=== PATIENT | female | born 1975 | race Caucasian/White ===

== ENCOUNTER 2018-09-05 14:08 | Emergency (ER) | payer OTHER ==
--- NOTE | 2018-09-05 14:43 | EDPHY ---
H & P Stated Complaint: Infected stye Time Seen by Provider: 09/05/18 14:43 HPI/ROS: Chart made in Error. Source: Patient - Personal History LMP (Females 10-55): IUD In Place Current Tetanus/Diphtheria Vaccine: Yes - Medical/Surgical History Hx Asthma: No Hx Chronic Respiratory Disease: No Hx Diabetes: No Hx Cardiac Disease: No Hx Renal Disease: No Hx Cirrhosis: No Hx Alcoholism: No Other PMH: Denies - Social History Smoking Status: Never smoked Constitutional: Initial Vital Signs Temperature (C) 36.4 C 09/05/18 14:16 Heart Rate 73 09/05/18 14:16 Respiratory Rate 18 09/05/18 14:16 Blood Pressure 113/86 H 09/05/18 14:16 O2 Sat (%) 94 09/05/18 14:16 O2 Delivery Mode Room Air Allergies/Adverse Reactions: No Known Allergies Allergy (Verified 09/05/18 16:16) Home Medications: Medication Instructions Recorded Acetaminophen [Tylenol 325mg (*)] 325 - 650 mg PO Q6 PRN 09/05/18 Cephalexin [Keflex (*)] 500 mg PO TID 09/05/18 Doxycycline Hyclate [Vibramycin 100 mg PO BID #14 cap 09/05/18 100 MG (*)] Ibuprofen [Motrin (*)] 400 mg PO Q6HRS PRN 09/05/18 Tobramycin 0.3% [Tobrex] 1 mary EACHEYE TID 09/05/18 Medical Decision Making - Data Points Laboratory Results: Laboratory Results 09/05/18 14:56 09/05/18 14:56 Medications Given: Discontinued Medications Sodium Chloride (Ns) 1,000 mls @ 0 mls/hr IV ONCE ONE; Wide Open PRN Reason: Protocol Stop: 09/05/18 14:52 Last Admin: 09/05/18 15:09 Dose: 1,000 mls Clindamycin Phosphate/Dextrose (Cleocin 600 Mg (Premix)) 50 mls @ 100 mls/hr IV ONCE ONE PRN Reason: Protocol Stop: 09/05/18 16:20 Last Admin: 09/05/18 15:57 Dose: 50 mls Departure - Departure Disposition: [facility] Acute Clinical Impression: Periorbital cellulitis of left eye, Failure of outpatient treatment Condition: Fair Additional Instructions: Dr. Dodge (ophthalmology) will call you for appointment in their [place] office tomorrow ([facility]) [phone] Take Keflex plus Doxycycline until complete Referrals: Nitin Dodge MD [Medical Doctor] - Nelly Carr NP [Primary Care Provider] - Prescriptions: Doxycycline Hyclate [Vibramycin 100 MG (*)] 100 mg PO BID #14 cap
[2018-09-05] MEDS ORDERED: NS 1,000 ML IV ONE (14:51)
--- NOTE | 2018-09-05 14:56 | EDPHY ---
H & P Stated Complaint: Infected stye Time Seen by Provider: 09/05/18 14:43 HPI/ROS: HPI: This is a 43-year-old female who presents with Chief Complaint: Left eye redness and swelling Location: Left eye Quality: Redness and swelling Duration: 4 days Signs and Symptoms: no fever, no nausea, no vomiting, no photophobia, no noise sensitivity, no neck stiffness, no ear pain, no tinnitus, no nasal congestion, no sinus pressure, no weakness, no radiation, no aura, no vision changes, no headache Timing: Worsening Severity: Moderate Context: Patient presents complaints of left eye periorbital redness and swelling that is now extending into her left cheek area. She reports that approximately 5 days ago she developed a stye on her left upper eyelid. She applied warm compresses several times per day for 2 days with no improvement in symptoms. She was seen at an urgent care approximately 3 days ago and started on Keflex twice daily. The redness and swelling actually worsened so she went to [facility] emergency room yesterday evening and had the stye "drained and Keflex increased to 3 times per day and started on tobramycin eyedrops." She reports that over the course of the day the redness and swelling started to improve and the area was draining. She woke up this morning and noted that the snow periorbital redness and swelling has decreased but now there is redness that is extending into her left cheek. Modifying Factors: None Comment: ROS: A comprehensive 10 system review of systems is otherwise negative aside from elements mentioned in the history of present illness. MEDICAL/SURGICAL/SOCIAL HISTORY: Medical history: Generally healthy. Does not take any regular medications. Has an IUD. Surgical history: Denies Social history: . Family history noncontributory. Never smoked. CONSTITUTIONAL: Well-developed, well-nourished, middle-aged white female, appears nontoxic, awake and alert, no obvious distress HEENT: Atraumatic and normocephalic, PERRL, EOMI. Left upper eyelid shows mild erythema and redness with a pinpoint area consistent with a stye towards the medial portion; there is a small area of redness a measuring approximately 0.5 in extending into her left cheek. No fluctuance appreciated. Nares patent; no rhinorrhea; no nasal mucosal edema. Tympanic membranes clear. Oropharynx clear , no exudate and moist pink mucosa. Airway patent. No lymphadenopathy. No meningismus. Visual Acuity: noted from Nurse's notes. Pupils: equal round and reactive to light. EOMI. Lids: Mild left upper eyelid edema or swelling Skin: Mild proptosis, mild periorbital erythema and swelling, no vesicles Conjunctivae: not injected, no discharge Anterior chamber: normal, no hyphema or hypopyon Cardiovascular: Normal S1/S2, regular rate, regular rhythm, without murmur rub or gallop. PULMONARY/CHEST: Symmetrical and nontender. Clear to auscultation bilaterally. Good air movement. No accessory muscle usage. ABDOMEN: Soft, nondistended, nontender, no rebound, no guarding, no peritoneal signs, no masses or organomegaly. No CVAT. EXTREMITIES: 2/2 pulses, strength 5/5, no deformities, no clubbing, no cyanosis or edema. NEUROLOGICAL: no focal neuro deficits. GCS 15. SKIN: Warm and dry, no erythema. no rash. Good capillary refill. Source: Patient Exam Limitations: No limitations - Personal History LMP (Females 10-55): IUD In Place Current Tetanus/Diphtheria Vaccine: Yes - Medical/Surgical History Hx Asthma: No Hx Chronic Respiratory Disease: No Hx Diabetes: No Hx Cardiac Disease: No Hx Renal Disease: No Hx Cirrhosis: No Hx Alcoholism: No Other PMH: Denies - Social History Smoking Status: Never smoked Constitutional: Initial Vital Signs Temperature (C) 36.4 C 09/05/18 14:16 Heart Rate 73 09/05/18 14:16 Respiratory Rate 18 09/05/18 14:16 Blood Pressure 113/86 H 09/05/18 14:16 O2 Sat (%) 94 09/05/18 14:16 O2 Delivery Mode Room Air Allergies/Adverse Reactions: No Known Allergies Allergy (Unverified 09/05/18 14:18) Home Medications: Medication Instructions Recorded Amoxicillin/Clavulanate Pot 05/09/12 [Augmentin 875 MG TAB (RX)] Benzonatate [Tessalon Pearles] 05/09/12 Medical Decision Making - Diagnostics Imaging Results: Imaging Impressions Face CT 09/05/18 14:52 Impression: Left facial soft tissue swelling with no discrete abscess. Findings discussed with Angely Powell 09/05/2018 at 15:28. ED Course/Re-evaluation: Vital signs reviewed and stable upon arrival. IV access, laboratory studies, CT maxillofacial scan ordered Patient given 1 L normal saline and IV clindamycin 600 mg given 1529: Called by Dr. Elroy Wilkins who reports CT maxillofacial scan shows no periorbital abscess no postseptal abscess. Does show some mild soft tissue swelling. 1530: Laboratory studies reviewed. No signs of leukocytosis/anemia/platelet dysfunction/YADIRA/elevated LFTs. 1545: ED decision to consult hospitalist for admission for failure of outpatient therapy and left periorbital cellulitis. Spoke with Dr. Luna who kindly agrees to admit patient and provide further care. This patient was seen under the supervision of my secondary supervising physician. I evaluated care for this patient with attending. Differential Diagnosis: Differential diagnosis includes but is not limited to corneal long, conjunctivitis, abscess, facial cellulitis. - Data Points Laboratory Results: Laboratory Results 09/05/18 14:56 09/05/18 14:56 09/05/18 09/05/18 09/05/18 14:56 14:56 14:56 WBC 6.90 10^3/uL 10^3/uL (3.80-9.50) RBC 4.72 10^6/uL 10^6/uL (4.18-5.33) Hgb 15.2 g/dL g/dL (12.6-16.3) Hct 45.8 % % (38.0-47.0) MCV 97.0 fL fL (81.5-99.8) MCH 32.2 pg pg (27.9-34.1) MCHC 33.2 g/dL g/dL (32.4-36.7) RDW 12.0 % % (11.5-15.2) Plt Count 225 10^3/uL 10^3/uL (150-400) MPV 10.5 fL fL (8.7-11.7) Neut % (Auto) 58.4 % % (39.3-74.2) Lymph % (Auto) 30.3 % % (15.0-45.0) [place] % (Auto) 9.3 % % (4.5-13.0) Eos % (Auto) 1.3 % % (0.6-7.6) Baso % (Auto) 0.6 % % (0.3-1.7) Nucleat RBC Rel Count 0.0 % % (0.0-0.2) Absolute Neuts (auto) 4.03 10^3/uL 10^3/uL (1.70-6.50) Absolute Lymphs (auto) 2.09 10^3/uL 10^3/uL (1.00-3.00) Absolute Monos (auto) 0.64 10^3/uL 10^3/uL (0.30-0.80) Absolute Eos (auto) 0.09 10^3/uL 10^3/uL (0.03-0.40) Absolute Basos (auto) 0.04 10^3/uL 10^3/uL (0.02-0.10) Absolute Nucleated RBC 0.00 10^3/uL 10^3/uL (0-0.01) Immature Gran % 0.1 % % (0.0-1.1) Immature Gran # 0.01 10^3/uL 10^3/uL (0.00-0.10) Sodium 141 mEq/L mEq/L (135-145) Potassium 4.3 mEq/L mEq/L (3.5-5.2) Chloride 108 mEq/L mEq/L (97-110) Carbon Dioxide 23 mEq/l mEq/l (22-31) Anion Gap 10 mEq/L mEq/L (6-14) BUN 14 mg/dL mg/dL (7-23) Creatinine 0.8 mg/dL mg/dL (0.6-1.0) Estimated GFR > 60 Glucose 87 mg/dL mg/dL (70-100) Calcium 9.2 mg/dL mg/dL (8.5-10.4) Beta HCG, Qual NEGATIVE Medications Given: Discontinued Medications Sodium Chloride (Ns) 1,000 mls @ 0 mls/hr IV ONCE ONE; Wide Open PRN Reason: Protocol Stop: 09/05/18 14:52 Last Admin: 09/05/18 15:09 Dose: 1,000 mls Departure - Departure Disposition: [facility] Inpatient Acute Clinical Impression: Periorbital cellulitis of left eye, Failure of outpatient treatment Condition: Fair
[2018-09-05 15:18] LABS: PLATELET COUNT 225 10^3/uL (150-400)
[2018-09-05] MEDS ORDERED: CLINDAMYCIN 600 MG/DEXTROSE 50 ML IV ONE (15:51)
[2018-09-05 16:38] VITALS: BP 113/83
--- NOTE | 2018-09-05 21:47 | GCON ---
[f rep st] CONSULTATION EMERGENCY ROOM INTERNAL MEDICINE CONSULTATION DATE OF CONSULTATION: 09/05/2018 REASON FOR CONSULTATION: Medical opinion regarding possible admission for preseptal cellulitis. HISTORY OF PRESENT ILLNESS: The patient is a 43-year-old female, who started with a stye on her left eye 5 days ago. She did 2 days of warm compresses without improvement. She went to Urgent Care 3 d ays ago, was started on Keflex b.i.d. She continued to worsen. She went to [facility] ER yester day and did have the stye drained with some pus returned. She had some initial improvement. Her Kef sami was increased to 3 times a day. She is on tobramycin ointment. Today her situation worsened yet again and it was recommended that she come to an ER that has ophthalmology coverage so she now is at [facility]. She denies any fever. She denies any blurry vision. She has no decrease d range of motion of the eye. She has some mild flu-like symptoms but otherwise feels well. 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 She uses a HypoChlor spray since October for prevention. She missed a couple days this last week. PAST SURGICAL HISTORY: Multiple D and C's as a complication of childbirth. MEDICATIONS: Please see computerized record for full detailed list. ALLERGIES: No known drug allergies. SOCIAL HISTORY: No smoking, 5 alcoholic beverages per week. She lives with her . She works at the [employer]. She has 2 children. REVIEW OF SYSTEMS: Complete review of systems obtained and negative regarding constitutional, HEENT, GI, pulmonary, cardiovascular, , hematology, skin, musculoskeletal, endocrine, and psychiatric, ex cept for positives and negatives as in HPI. FAMILY HISTORY: Her mother has hypertrophic cardiomyopathy and atrial fibrillation. Her father has type 2 diabetes, as well as coronary artery disease, and has had 15 stents. PHYSICAL EXAMINATION: GENERAL: Well-developed, well-nourished female, in no acute distress. VITAL SIGNS: Temperature is 36.4, pulse 73, blood pressure 104/81, saturating 99% on room air. EYES: Her left eye has a large stye on the medial portion with multiple areas of purulence seen just under the skin. There is extensive swelling extending on the upper eyelid from the stye. Erythema does not e xtend above her eyebrow. It is mostly limited to the eyelid. There is a slight amount of erythema u nder the eye, which looks more like gravity drainage of edema rather than extenuation of cellulitis. Pupils equal, round, and react to light. ENT: Normal ears and nose. Hearing intact. Normal lips and teeth. Oropharynx is moist. NECK: Trachea midline. No thyromegaly. CHEST: Normal respirator y effort. Lungs are clear to auscultation bilaterally. CARDIOVASCULAR SYSTEM: Regular rate and rhy thm. No edema. ABDOMEN: Soft, nontender. No hepatosplenomegaly. SKIN: Warm, dry, and intact wit hout rash except for eye as described above. MUSCULOSKELETAL: No cyanosis or clubbing. Strength is 5/5 upper and lower extremities. NEUROLOGICAL: Cranial nerves are intact. Normal sensation to lig ht touch. PSYCHIATRIC: She is alert and oriented x3. Normal affect. Normal judgment and insight. Normal memory. She is very nontoxic appearing. LABORATORY DATA: White count 6.9, hematocrit 45.8, platelets 225. Sodium 141, potassium 4.3, chlori de 108, bicarb 23, BUN 14, creatinine 0.8, glucose 87. Beta hCG is negative. Facial CT shows soft t issue swelling, no orbital involvement. This case was discussed with ELLIOT Powell in the emergency room. There was concern for periorbita l cellulitis with failure of outpatient oral antibiotics. Therefore, they had proposed admission. ASSESSMENT AND PLAN: Possible preseptal cellulitis: Although per my examination, this really just l ooks like a severe stye with minimal extension beyond the upper eyelid. It still clearly needs more drainage, which needs to be done by an chemical engineering intern. She did get a dose of IV clindamycin in the emergency room but I think drainage is what she needs more than IV antibiotics. I do not think we wo uld get Ophthalmology to see her here all that quickly in the hospital. It may be in her best intere st to get urgent outpatient followup. I spoke to the on-call chemical engineering intern, Dr. Dodge with [facility]. He assured me they would get her in urgently tomorrow. The patient d oes not want to be admitted. She is otherwise nontoxic appearing. Does not appear to have any cellu litis. Her CT scan is reassuring and she really has minimal cellulitis and I think it is mostly limi pedro to just swelling from the stye. I therefore will back off on plans for any further IV antibiotic s. I will add doxycycline to the Keflex for improved methicillin-resistant Staphylococcus aureus cov erage. Dr. Dodge will call her this evening with an appointment time in their [place] office. I th ink she is stable to go home for close outpatient followup. Thank you very much for this consultation. I will be cancelling the admission with close outpatient followup plan as above. 1.25 hours has been spent making arrangements for this emergency room discharge. /[id number]/MODL
== END 2018-09-05 17:33 | disposition still patient (30) ==
LOC: UNDOADMIN 15:50
DX: L03.213 Periorbital cellulitis (principal); E86.9 Volume depletion, unspecified
CPT/HCPCS: 96365